=== PATIENT | male | born 1980 | race Caucasian/White ===

== ENCOUNTER 2023-03-14 14:55 | Emergency (ER) | payer MEDICAID ==
[~2023-03-14] VITALS: Ht 182.9 cm; Wt 81.7 kg
== END 2023-03-14 15:59 | disposition left against medical advice (07) ==
LOC: ER 14:55
DX: M79.602 Pain in left arm (principal); Z53.21 Procedure and treatment not carried out due to patient leaving prior to being seen by health care provider
CPT/HCPCS: 73080; 99281-25